=== PATIENT | female | born 1980 ===

== ENCOUNTER 2024-05-11 12:15 | Inpatient (IN) | payer OTHER ==
[~2024-05-11] VITALS: Ht 33 cm; Wt 79.8 kg
[2024-05-14 13:29] VITALS: BP 104/72
[2024-05-14 13:30] VITALS: BP 110/65
[2024-05-19 06:54] LABS: RH POSITIVE
[2024-05-19] MEDS ORDERED: BUPIVACAINE HCL 30 ML VIAL IJ ONE (17:30)
[2024-05-19] MEDS ORDERED: VISTASEAL DUAL APPICATOR 1 EACH APPL TOP ONE (17:30)
[2024-05-19] MEDS ORDERED: POVIDONE-IODINE 118 ML BOTT TOP ONE (17:30)
[2024-05-19] MEDS ORDERED: CEFTRIAXONE SODIUM 2,000 MG VIAL IV SCH (17:30)
[2024-05-19] MEDS ORDERED: METRONIDAZOLE/SODIUM CHLORIDE 500 MG/100 ML PIGGYBACK IV SCH (17:30)
[2024-05-19] MEDS ORDERED: THROMBIN,HU/FIBRINOGEN/CALCIUM 10 ML SYRINGE TOP ONE (17:30)
[2024-05-19] MEDS ORDERED: LIDOCAINE HCL 1%/EPINEPHRINE 20ML VIAL IJ ONE (17:30)
[2024-05-19] MEDS ORDERED: RINGERS SOLUTION,LACTATED 1,000 ML IV SCH (18:39)
[2024-05-19] MEDS ORDERED: ONDANSETRON HCL 2 MG/ML VIAL IV SCH (18:40)
[2024-05-19] MEDS ORDERED: CELECOXIB 200 MG CAPSULE PO STA (18:41)
[2024-05-19] MEDS ORDERED: ACETAMINOPHEN 325 MG TABLET PO STA (18:41)
[2024-05-19] MEDS ORDERED: GABAPENTIN 100 MG CAPSULE PO STA (18:41)
[2024-05-19] MEDS ORDERED: CEFAZOLIN SODIUM 1,000 MG VIAL IV SCH (18:42)
[2024-05-19] MEDS ORDERED: MORPHINE SULFATE 4 MG/ML VIAL IV ONE (19:15)
[2024-05-19 20:31] LABS: HEMATOCRIT 40.2 % (36.0-45.00); HEMOGLOBIN 13.3 g/dL (12.0-15.00); MEAN CELL VOLUME 93.3 fL (80.00-100.00); MEAN CORPUSCULAR HEMOGLOBIN 30.8 pg (27.00-32.0); PLATELET COUNT 252 K/uL (150-450); RED BLOOD COUNT 4.31 M/uL (4.00-6.00); RED CELL DISTRIBUTION WIDTH 14.5 % (11.5-14.5)
[2024-05-19 21:01] LABS: CALCIUM 8.9 mg/dL (8.5-10.1); CREATININE SERUM 1.01 mg/dL (0.55-1.02); GFR 59.82; POTASSIUM 3.9 mEq/L (3.5-5.1)
[2024-05-19 21:19] VITALS: BP 100/65
[2024-05-20] MEDS ORDERED: MORPHINE SULFATE 2 MG/ML SYRINGE IV SCH
[2024-05-20 02:30] VITALS: BP 100/62
[2024-05-20 05:04] LABS: HEMATOCRIT 37.8 % (36.0-45.00); HEMOGLOBIN 12.8 g/dL (12.0-15.00); MEAN CELL VOLUME 92.6 fL (80.00-100.00); MEAN CORPUSCULAR HEMOGLOBIN 31.5 pg (27.00-32.0); PLATELET COUNT 234 K/uL (150-450); RED BLOOD COUNT 4.08 M/uL (4.00-6.00); RED CELL DISTRIBUTION WIDTH 14.9 % (11.5-14.5)
[2024-05-20 05:34] LABS: CALCIUM 8.5 mg/dL (8.5-10.1); CREATININE SERUM 0.98 mg/dL (0.55-1.02); GFR 61.94; POTASSIUM 3.94 mEq/L (3.5-5.1)
[2024-05-20] MEDS ORDERED: MORPHINE SULFATE 4 MG/ML CARTRIDGE IV PRN (06:45)
[2024-05-20 08:32] VITALS: BP 100/58
== END 2024-05-20 13:05 | disposition home or self-care (01) | DRG 743 ==
LOC: O/R 05-19 05:23 → OB/GYN 05-19 07:00
PROVIDERS: Surgery; Urology; ADMIT Obstetrics & Gynecology Gynecology; ATTEND Obstetrics & Gynecology Gynecology
PROC: 0DNU4ZZ Release Omentum, Percutaneous Endoscopic Approach (ICD-10-PCS; 2024-05-19)
PROC: 0DTJ4ZZ Resection of Appendix, Percutaneous Endoscopic Approach (ICD-10-PCS; 2024-05-19)
PROC: 0DBU4ZZ Excision of Omentum, Percutaneous Endoscopic Approach (ICD-10-PCS; 2024-05-19)
PROC: 0T788DZ Dilation of Bilateral Ureters with Intraluminal Device, Via Natural or Artificial Opening Endoscopic (ICD-10-PCS; 2024-05-19)
PROC: 0UT94ZZ Resection of Uterus, Percutaneous Endoscopic Approach (ICD-10-PCS; principal; 2024-05-19 07:00)
PROC: 0UT74ZZ Resection of Bilateral Fallopian Tubes, Percutaneous Endoscopic Approach (ICD-10-PCS; 2024-05-19 07:00)
PROC: 0UT24ZZ Resection of Bilateral Ovaries, Percutaneous Endoscopic Approach (ICD-10-PCS; 2024-05-19 07:00)
DX: D25.2 Subserosal leiomyoma of uterus (principal); N94.5 Secondary dysmenorrhea; K66.0 Peritoneal adhesions (postprocedural) (postinfection); N84.0 Polyp of corpus uteri; N80.103 Endometriosis of bilateral ovaries, unspecified depth; N80.203 Endometriosis of bilateral fallopian tubes, unspecified depth; N80.559 Endometriosis of other parts of the colon, unspecified depth; Z20.822 Contact with and (suspected) exposure to COVID-19